=== PATIENT | male | born 1950 | race Caucasian/White ===

== ENCOUNTER 2021-06-07 11:44 | Inpatient (IN) ==
[2021-06-07] MEDS ORDERED: ONDANSETRON 4 MG/2 ML VIAL ONE (12:07)
[2021-06-07] MEDS ORDERED: ONDANSETRON 4 MG/2 ML VIAL IV STA (12:13)
[2021-06-07 12:26] LABS: ABG Base Excess 3.2 MMOL/L (-2.5-2.5); ABG HCO3 26.8 MMOL/L (20-26); ABG Oxygen Saturation 97.1 % (95-100); ABG PH 7.467 (7.35-7.45); ABG PO2 95.3 MM HG (80-95)
[2021-06-07 12:53] LABS: Basophils % 0.2 % (0.0-0.8); Hematocrit 45.3 VOL% (42.0-52.0); Hemoglobin 14.8 GM/DL (14.0-18.0); Immature Granulocytes % 1.4 %; Immature Granulocytes Absolute 0.14 #; Lymphocytes # 0.3 10*3/uL (1.4-4.0); Lymphocytes % 3.3 % (21.2-54.2); Mean Corpuscular HGB Conc 32.7 GM/DL (32-36); Mean Platelet Volume 9.6 FL (9.6-12.0); Monocytes % 5.3 % (1.7-12.7); Neutrophils % 89.8 % (38.7-73.9); Platelet Count 266 T/CUMM (130-400); Red Blood Count 4.98 MC/CUMM (3.8-5.5); Red Cell Distribution Width 14.5 % (9.3-17.3); White Blood Count 10.4 T/CUMM (4-12)
[2021-06-07] MEDS ORDERED: cefTRIAXone 1,000 MG in SODIUM CHLORIDE 0.9% 100 ML IV STA (12:56)
[2021-06-07] MEDS ORDERED: AZITHROMYCIN INJ 500 MG in SODIUM CHLORIDE 0.9% 250 ML IV STA (12:56)
[2021-06-07 13:10] LABS: Albumin 2.9 G/DL (3.4-5.0); Bilirubin,Total 1.1 MG/DL (0.20-1.00); Calcium 9.8 MG/DL (8.5-10.1); Potassium 3.7 MMOL/L (3.5-5.1); Total Protein 8.2 G/DL (6.4-8.2)
[2021-06-07 13:26] LABS: Platelet Estimate Adequate
[2021-06-07] MEDS ORDERED: LACTATED RINGERS 2,000 ML IV ONE (14:23)
[2021-06-07] MEDS ORDERED: ALBUTEROL 2.5 MG/3 ML NEB RESP TX STA (14:30)
[2021-06-07] MEDS ORDERED: DEXTROSE 10% 250 ML BAG IV PRN (15:18)
[2021-06-07] MEDS ORDERED: GLUCAGON 1 MG VIAL IM PRN (15:18)
[2021-06-07] MEDS: LACTATED RINGERS 1,000 ML IV SCH (15:53)
[2021-06-07] MEDS: DEXAMETHASONE 4 MG/1 ML VIAL IV SCH (16:06)
[2021-06-07] MEDS: AZITHROMYCIN INJ 500 MG in SODIUM CHLORIDE 0.9% 250 ML IV SCH (17:47)
[2021-06-07] MEDS: cefTRIAXone 1,000 MG in SODIUM CHLORIDE 0.9% 100 ML IV SCH (17:48)
[2021-06-07] MEDS: ZINC GLUCONATE 50 MG TABLET PO SCH (18:19)
[2021-06-07] MEDS: CETIRIZINE 10 MG TABLET PO SCH (18:19)
[2021-06-07] MEDS: CHOLECALCIFEROL 1,000 UNIT TABLET PO SCH (18:19)
[2021-06-07] MEDS: ONDANSETRON 4 MG/2 ML VIAL IV PRN (19:24)
[2021-06-07] MEDS: ALBUTEROL/IPRATROPIUM 3 ML NEB RESP TX SCH (20:39)
[2021-06-07] MEDS: ENOXAPARIN 40 MG/0.4 ML SYRINGE SUBCUT SCH (20:55)
[2021-06-07] MEDS: ASCORBIC ACID 500 MG TABLET PO SCH (20:55)
[2021-06-07] MEDS: FAMOTIDINE 20 MG TABLET PO SCH (20:55)
[2021-06-08] MEDS: LACTATED RINGERS 1,000 ML IV SCH ×3 (01:14→21:07)
[2021-06-08] MEDS: ALBUTEROL/IPRATROPIUM 3 ML NEB RESP TX SCH ×4 (01:36→19:42)
[2021-06-08] MEDS: ONDANSETRON 4 MG/2 ML VIAL IV PRN ×5 (02:42→21:10)
[2021-06-08 05:23] LABS: Basophils # 0.1 10*3/uL (0.0-0.2); Basophils % 0.7 % (0.0-0.8); Immature Granulocytes % 1.1 %; Lymphocytes # 0.2 10*3/uL (1.4-4.0); Lymphocytes % 2.5 % (21.2-54.2); Mean Corpuscular HGB Conc 31.8 GM/DL (32-36); Mean Corpuscular Volume 92.8 FL (87-102); Mean Platelet Volume 9.8 FL (9.6-12.0); Neutrophils % 91.7 % (38.7-73.9); Platelet Count 219 T/CUMM (130-400); Red Blood Count 4.74 MC/CUMM (3.8-5.5); Red Cell Distribution Width 14.3 % (9.3-17.3); White Blood Count 8.8 T/CUMM (4-12)
[2021-06-08 05:50] LABS: Band Neutrophils 2 % (0-10); Lymphocytes 1 % (20-55); Platelet Estimate Adequate; Segmented Neutrophils 90 % (50-85); Total Cells Counted 100
[2021-06-08 05:52] LABS: Albumin 2.2 G/DL (3.4-5.0); Bilirubin,Total 0.6 MG/DL (0.20-1.00); Ferritin 620.8 ng/mL (26-388); Osmolality,Calculated 293.7 MOS/KG (273-304); Potassium 3.9 MMOL/L (3.5-5.1); Total Protein 6.7 G/DL (6.4-8.2)
[2021-06-08 06:47] LABS: Sedimentation Rate-Westergren 72 MM/HR (0-20)
[2021-06-08] MEDS: ASCORBIC ACID 500 MG TABLET PO SCH ×2 (10:29→21:08)
[2021-06-08] MEDS: ENOXAPARIN 40 MG/0.4 ML SYRINGE SUBCUT SCH ×2 (10:29→21:07)
[2021-06-08] MEDS: FAMOTIDINE 20 MG TABLET PO SCH ×2 (10:29→21:07)
[2021-06-08] MEDS: CHOLECALCIFEROL 1,000 UNIT TABLET PO SCH (10:29)
[2021-06-08] MEDS: CETIRIZINE 10 MG TABLET PO SCH (10:29)
[2021-06-08] MEDS: ZINC GLUCONATE 50 MG TABLET PO SCH (10:30)
[2021-06-08] MEDS: DEXAMETHASONE 4 MG/1 ML VIAL IV SCH (10:30)
[2021-06-08] MEDS: AZITHROMYCIN INJ 500 MG in SODIUM CHLORIDE 0.9% 250 ML IV SCH (16:15)
[2021-06-08] MEDS: cefTRIAXone 1,000 MG in SODIUM CHLORIDE 0.9% 100 ML IV SCH (18:32)
[2021-06-08] MEDS: MELATONIN 3 MG TABLET PO PRN (21:07)
[2021-06-09] MEDS: LACTATED RINGERS 1,000 ML IV SCH (01:21)
[2021-06-09] MEDS: ONDANSETRON 4 MG/2 ML VIAL IV PRN ×5 (04:53→21:21)
[2021-06-09 05:06] LABS: Basophils % 0.1 % (0.0-0.8); Hematocrit 45.1 VOL% (42.0-52.0); Hemoglobin 14.2 GM/DL (14.0-18.0); Immature Granulocytes % 1.6 %; Immature Granulocytes Absolute 0.18 #; Lymphocytes # 0.3 10*3/uL (1.4-4.0); Lymphocytes % 2.8 % (21.2-54.2); Mean Corpuscular HGB Conc 31.5 GM/DL (32-36); Mean Platelet Volume 9.6 FL (9.6-12.0); Monocytes % 4.1 % (1.7-12.7); Neutrophils % 91.4 % (38.7-73.9); Platelet Count 236 T/CUMM (130-400); Red Cell Distribution Width 14.1 % (9.3-17.3)
[2021-06-09 05:29] LABS: Band Neutrophils 1 % (0-10); Hypochromia 1+; Lymphocytes 3 % (20-55); Segmented Neutrophils 91 % (50-85); Total Cells Counted 100
[2021-06-09 05:30] LABS: Microcytosis 1+; Ovalocytes Few
[2021-06-09 05:40] LABS: Albumin 2.1 G/DL (3.4-5.0); Bilirubin,Total 1.5 MG/DL (0.20-1.00); Calcium 8.8 MG/DL (8.5-10.1); Ferritin 602.5 ng/mL (26-388); Osmolality,Calculated 293.1 MOS/KG (273-304); Potassium 3.9 MMOL/L (3.5-5.1); Total Protein 6.3 G/DL (6.4-8.2)
[2021-06-09] MEDS: ENOXAPARIN 40 MG/0.4 ML SYRINGE SUBCUT SCH ×2 (09:31→21:16)
[2021-06-09] MEDS: DEXAMETHASONE 4 MG/1 ML VIAL IV SCH (09:31)
[2021-06-09] MEDS: FAMOTIDINE 20 MG TABLET PO SCH ×2 (09:32→21:16)
[2021-06-09] MEDS: ASCORBIC ACID 500 MG TABLET PO SCH ×2 (09:32→21:16)
[2021-06-09] MEDS: CHOLECALCIFEROL 1,000 UNIT TABLET PO SCH (09:32)
[2021-06-09] MEDS: AZITHROMYCIN 250 MG TABLET PO SCH (09:32)
[2021-06-09] MEDS: CETIRIZINE 10 MG TABLET PO SCH (09:32)
[2021-06-09] MEDS: ZINC GLUCONATE 50 MG TABLET PO SCH (09:32)
[2021-06-09] MEDS ORDERED: methylPREDNISolone SOD SUC 40 MG/1 ML VIAL IV SCH (10:30)
[2021-06-09] MEDS: cefTRIAXone 1,000 MG in SODIUM CHLORIDE 0.9% 100 ML IV SCH (19:04)
[2021-06-09] MEDS: methylPREDNISolone SOD SUC 40 MG/1 ML VIAL IV SCH (19:04)
[2021-06-10] MEDS ORDERED: BENZONATATE 100 MG CAPSULE PO PRN (00:42)
[2021-06-10] MEDS ORDERED: ALBUTEROL INHALER 18 GM INH SCH (01:00)
[2021-06-10] MEDS: methylPREDNISolone SOD SUC 40 MG/1 ML VIAL IV SCH ×3 (02:32→19:12)
[2021-06-10] MEDS ORDERED: FUROSEMIDE 40 MG/4 ML VIAL IV ONE (02:44)
[2021-06-10 03:00] LABS: ABG Base Excess 6.7 MMOL/L (-2.5-2.5); ABG HCO3 30.3 MMOL/L (20-26); ABG Oxygen Saturation 88.2 % (95-100); ABG PCO2 47.2 MM HG (35-48); ABG PH 7.441 (7.35-7.45); ABG PO2 57.2 MM HG (80-95); ABG TCO2 27.5 MMOL/L (23-27); Allen Test Positive
[2021-06-10] MEDS: ALBUTEROL/IPRATROPIUM 3 ML NEB RESP TX SCH ×4 (04:11→20:00)
[2021-06-10] MEDS: BENZONATATE 100 MG CAPSULE PO SCH ×4 (04:34→20:28)
[2021-06-10 07:59] LABS: Basophils % 0.1 % (0.0-0.8); Hematocrit 46.9 VOL% (42.0-52.0); Hemoglobin 15.1 GM/DL (14.0-18.0); Immature Granulocytes % 1.7 %; Immature Granulocytes Absolute 0.23 #; Lymphocytes # 0.3 10*3/uL (1.4-4.0); Lymphocytes % 2.2 % (21.2-54.2); Mean Corpuscular HGB Conc 32.2 GM/DL (32-36); Mean Corpuscular Volume 91.1 FL (87-102); Mean Platelet Volume 9.5 FL (9.6-12.0); Monocytes % 3.2 % (1.7-12.7); Neutrophils % 92.8 % (38.7-73.9); Platelet Count 260 T/CUMM (130-400); Red Blood Count 5.15 MC/CUMM (3.8-5.5); White Blood Count 13.5 T/CUMM (4-12)
[2021-06-10 08:19] LABS: Band Neutrophils 1 % (0-10); Lymphocytes 3 % (20-55); Segmented Neutrophils 92 % (50-85); Total Cells Counted 100
[2021-06-10 08:20] LABS: Albumin 2.4 G/DL (3.4-5.0); Bilirubin,Total 0.7 MG/DL (0.20-1.00); Calcium 9.2 MG/DL (8.5-10.1); Ferritin 478.8 ng/mL (26-388); Osmolality,Calculated 293.3 MOS/KG (273-304); Platelet Estimate Adequate; Potassium 3.6 MMOL/L (3.5-5.1); Total Protein 7.1 G/DL (6.4-8.2)
[2021-06-10] MEDS: ENOXAPARIN 40 MG/0.4 ML SYRINGE SUBCUT SCH ×2 (09:15→20:28)
[2021-06-10] MEDS: ASCORBIC ACID 500 MG TABLET PO SCH ×2 (09:15→20:28)
[2021-06-10] MEDS: CETIRIZINE 10 MG TABLET PO SCH (09:15)
[2021-06-10] MEDS: FAMOTIDINE 20 MG TABLET PO SCH ×2 (09:15→20:28)
[2021-06-10] MEDS: ZINC GLUCONATE 50 MG TABLET PO SCH (09:15)
[2021-06-10] MEDS: CHOLECALCIFEROL 1,000 UNIT TABLET PO SCH (09:15)
[2021-06-10] MEDS: AZITHROMYCIN 250 MG TABLET PO SCH (09:15)
[2021-06-10] MEDS: cefTRIAXone 1,000 MG in SODIUM CHLORIDE 0.9% 100 ML IV SCH (18:05)
[2021-06-10] MEDS: ONDANSETRON 4 MG/2 ML VIAL IV PRN (18:06)
[2021-06-11] MEDS: methylPREDNISolone SOD SUC 40 MG/1 ML VIAL IV SCH ×3 (02:41→18:00)
[2021-06-11 04:44] LABS: Basophils % 0.1 % (0.0-0.8); Hematocrit 45.7 VOL% (42.0-52.0); Immature Granulocytes % 1.7 %; Immature Granulocytes Absolute 0.25 #; Lymphocytes # 0.4 10*3/uL (1.4-4.0); Lymphocytes % 2.4 % (21.2-54.2); Mean Corpuscular HGB Conc 32.8 GM/DL (32-36); Mean Corpuscular Volume 90.3 FL (87-102); Mean Platelet Volume 10.2 FL (9.6-12.0); Monocytes % 3.1 % (1.7-12.7); Neutrophils % 92.7 % (38.7-73.9); Platelet Count 250 T/CUMM (130-400); Red Blood Count 5.06 MC/CUMM (3.8-5.5); Red Cell Distribution Width 14.1 % (9.3-17.3); White Blood Count 14.5 T/CUMM (4-12)
[2021-06-11 05:01] LABS: ABG Base Excess 8.8 MMOL/L (-2.5-2.5); ABG HCO3 32.3 MMOL/L (20-26); ABG PCO2 44.9 MM HG (35-48); ABG PH 7.482 (7.35-7.45); ABG PO2 66.1 MM HG (80-95); ABG TCO2 28.2 MMOL/L (23-27)
[2021-06-11 05:04] LABS: Calcium 8.8 MG/DL (8.5-10.1); Osmolality,Calculated 298.7 MOS/KG (273-304); Potassium 3.8 MMOL/L (3.5-5.1)
[2021-06-11 05:11] LABS: Lymphocytes 1 % (20-55); Platelet Estimate Adequate; Segmented Neutrophils 96 % (50-85); Total Cells Counted 100
[2021-06-11] MEDS: AZITHROMYCIN 250 MG TABLET PO SCH (08:22)
[2021-06-11] MEDS: ZINC GLUCONATE 50 MG TABLET PO SCH (08:22)
[2021-06-11] MEDS: ENOXAPARIN 40 MG/0.4 ML SYRINGE SUBCUT SCH ×2 (08:22→20:08)
[2021-06-11] MEDS: FAMOTIDINE 20 MG TABLET PO SCH ×2 (08:22→20:09)
[2021-06-11] MEDS: ASCORBIC ACID 500 MG TABLET PO SCH ×2 (08:22→20:09)
[2021-06-11] MEDS: CETIRIZINE 10 MG TABLET PO SCH (08:22)
[2021-06-11] MEDS: BENZONATATE 100 MG CAPSULE PO SCH ×3 (08:22→20:09)
[2021-06-11] MEDS: CHOLECALCIFEROL 1,000 UNIT TABLET PO SCH (08:22)
[2021-06-11] MEDS: ONDANSETRON 4 MG/2 ML VIAL IV PRN ×2 (09:38→13:58)
[2021-06-11] MEDS: LORazepam 2 MG/1 ML VIAL IV PRN (10:28)
[2021-06-11] MEDS: ASPIRIN EC 81 MG TABLET PO SCH (14:06)
[2021-06-11] MEDS: TAMSULOSIN 0.4 MG CAPSULE PO SCH (14:07)
[2021-06-11] MEDS: FLUTICASONE 50 MCG NASAL SPRAY 16 GM BOTTLE BOTH NARES SCH (14:34)
[2021-06-11] MEDS: ALBUTEROL/IPRATROPIUM 3 ML NEB RESP TX SCH ×3 (14:45→23:41)
[2021-06-11] MEDS: cefTRIAXone 1,000 MG in SODIUM CHLORIDE 0.9% 100 ML IV SCH (18:02)
[2021-06-11] MEDS: ATORVASTATIN 40 MG TABLET PO SCH (20:09)
[2021-06-12 02:48] LABS: ABG Base Excess 9.6 MMOL/L (-2.5-2.5); ABG HCO3 33.1 MMOL/L (20-26); ABG Oxygen Saturation 90.8 % (95-100); ABG PCO2 49.5 MM HG (35-48); ABG PH 7.461 (7.35-7.45); ABG PO2 64.2 MM HG (80-95); ABG TCO2 29.9 MMOL/L (23-27)
[2021-06-12] MEDS: methylPREDNISolone SOD SUC 40 MG/1 ML VIAL IV SCH ×3 (02:51→17:46)
[2021-06-12] MEDS: LORazepam 2 MG/1 ML VIAL IV PRN ×3 (03:46→20:35)
[2021-06-12 04:03] LABS: Basophils % 0.1 % (0.0-0.8); Hematocrit 47.3 VOL% (42.0-52.0); Immature Granulocytes % 1.5 %; Immature Granulocytes Absolute 0.21 #; Lymphocytes # 0.3 10*3/uL (1.4-4.0); Lymphocytes % 2.3 % (21.2-54.2); Mean Corpuscular HGB Conc 31.7 GM/DL (32-36); Mean Corpuscular Volume 91.8 FL (87-102); Mean Platelet Volume 10.3 FL (9.6-12.0); Monocytes % 2.6 % (1.7-12.7); Neutrophils % 93.5 % (38.7-73.9); Platelet Count 240 T/CUMM (130-400); Red Blood Count 5.15 MC/CUMM (3.8-5.5); White Blood Count 13.7 T/CUMM (4-12)
[2021-06-12 04:26] LABS: Lymphocytes 1 % (20-55); Platelet Estimate Adequate; Segmented Neutrophils 97 % (50-85); Total Cells Counted 100
[2021-06-12 04:28] LABS: Albumin 2.1 G/DL (3.4-5.0); Bilirubin,Total 0.4 MG/DL (0.20-1.00); Calcium 9.1 MG/DL (8.5-10.1); Ferritin 341.4 ng/mL (26-388); Osmolality,Calculated 299.8 MOS/KG (273-304); Potassium 4.4 MMOL/L (3.5-5.1); Total Protein 6.2 G/DL (6.4-8.2)
[2021-06-12] MEDS: LEVOTHYROXINE 150 MCG TABLET PO SCH (06:16)
[2021-06-12] MEDS: ALBUTEROL/IPRATROPIUM 3 ML NEB RESP TX SCH ×3 (07:00→16:10)
[2021-06-12] MEDS: ASCORBIC ACID 500 MG TABLET PO SCH ×2 (08:45→20:57)
[2021-06-12] MEDS: hydroCHLOROthiazide 12.5 MG CAPSULE PO SCH (08:45)
[2021-06-12] MEDS: FAMOTIDINE 20 MG TABLET PO SCH ×2 (08:46→20:56)
[2021-06-12] MEDS: OXYBUTYNIN XL 10 MG TABLET PO SCH (08:46)
[2021-06-12] MEDS: ZINC GLUCONATE 50 MG TABLET PO SCH (08:46)
[2021-06-12] MEDS: ASPIRIN EC 81 MG TABLET PO SCH (08:46)
[2021-06-12] MEDS: TAMSULOSIN 0.4 MG CAPSULE PO SCH (08:46)
[2021-06-12] MEDS: CETIRIZINE 10 MG TABLET PO SCH (08:46)
[2021-06-12] MEDS: CHOLECALCIFEROL 1,000 UNIT TABLET PO SCH (08:46)
[2021-06-12] MEDS: ENOXAPARIN 40 MG/0.4 ML SYRINGE SUBCUT SCH ×2 (08:47→20:56)
[2021-06-12] MEDS: FLUTICASONE 50 MCG NASAL SPRAY 16 GM BOTTLE BOTH NARES SCH (08:48)
[2021-06-12] MEDS: BENZONATATE 100 MG CAPSULE PO SCH ×3 (08:54→20:56)
[2021-06-12] MEDS: LOSARTAN 50 MG TABLET PO SCH (10:33)
[2021-06-12] MEDS: cefTRIAXone 1,000 MG in SODIUM CHLORIDE 0.9% 100 ML IV SCH (16:00)
[2021-06-12] MEDS: ONDANSETRON 4 MG/2 ML VIAL IV PRN (17:32)
[2021-06-12] MEDS: ATORVASTATIN 40 MG TABLET PO SCH (20:56)
[2021-06-13] MEDS: ALBUTEROL/IPRATROPIUM 3 ML NEB RESP TX SCH ×6 (00:17→20:43)
[2021-06-13] MEDS: methylPREDNISolone SOD SUC 40 MG/1 ML VIAL IV SCH ×3 (01:17→18:08)
[2021-06-13 05:12] LABS: Basophils % 0.1 % (0.0-0.8); Hematocrit 48.6 VOL% (42.0-52.0); Hemoglobin 15.5 GM/DL (14.0-18.0); Immature Granulocytes % 1.2 %; Immature Granulocytes Absolute 0.22 #; Lymphocytes # 0.3 10*3/uL (1.4-4.0); Lymphocytes % 1.8 % (21.2-54.2); Mean Corpuscular HGB Conc 31.9 GM/DL (32-36); Mean Platelet Volume 9.3 FL (9.6-12.0); Monocytes % 1.5 % (1.7-12.7); Neutrophils % 95.4 % (38.7-73.9); Platelet Count 270 T/CUMM (130-400); Red Blood Count 5.34 MC/CUMM (3.8-5.5); White Blood Count 17.7 T/CUMM (4-12)
[2021-06-13 05:35] LABS: Lymphocytes 2 % (20-55); Platelet Estimate Normal; Segmented Neutrophils 96 % (50-85); Total Cells Counted 100
[2021-06-13 05:41] LABS: Albumin 2.1 G/DL (3.4-5.0); Bilirubin,Total 0.8 MG/DL (0.20-1.00); Calcium 8.9 MG/DL (8.5-10.1); Osmolality,Calculated 301.8 MOS/KG (273-304); Potassium 4.3 MMOL/L (3.5-5.1); Total Protein 6.3 G/DL (6.4-8.2)
[2021-06-13] MEDS: LEVOTHYROXINE 150 MCG TABLET PO SCH (06:22)
[2021-06-13] MEDS: ONDANSETRON 4 MG/2 ML VIAL IV PRN (06:52)
[2021-06-13] MEDS: OXYBUTYNIN XL 10 MG TABLET PO SCH (09:19)
[2021-06-13] MEDS: ZINC GLUCONATE 50 MG TABLET PO SCH (09:19)
[2021-06-13] MEDS: ENOXAPARIN 40 MG/0.4 ML SYRINGE SUBCUT SCH ×2 (09:19→21:16)
[2021-06-13] MEDS: CHOLECALCIFEROL 1,000 UNIT TABLET PO SCH (09:19)
[2021-06-13] MEDS: TAMSULOSIN 0.4 MG CAPSULE PO SCH (09:19)
[2021-06-13] MEDS: BENZONATATE 100 MG CAPSULE PO SCH ×3 (09:19→21:16)
[2021-06-13] MEDS: CETIRIZINE 10 MG TABLET PO SCH (09:20)
[2021-06-13] MEDS: FAMOTIDINE 20 MG TABLET PO SCH ×2 (09:20→21:16)
[2021-06-13] MEDS: hydroCHLOROthiazide 12.5 MG CAPSULE PO SCH (09:20)
[2021-06-13] MEDS: ASPIRIN EC 81 MG TABLET PO SCH (09:20)
[2021-06-13] MEDS: LOSARTAN 50 MG TABLET PO SCH (09:20)
[2021-06-13] MEDS: ASCORBIC ACID 500 MG TABLET PO SCH ×2 (09:20→21:16)
[2021-06-13] MEDS: FLUTICASONE 50 MCG NASAL SPRAY 16 GM BOTTLE BOTH NARES SCH (09:23)
[2021-06-13] MEDS: PROMETHAZINE INJ 25 MG in SODIUM CHLORIDE 0.9% 50 ML IV PRN (09:49)
[2021-06-13] MEDS: cefTRIAXone 1,000 MG in SODIUM CHLORIDE 0.9% 100 ML IV SCH (18:10)
[2021-06-13] MEDS: MELATONIN 3 MG TABLET PO PRN (21:16)
[2021-06-13] MEDS: ATORVASTATIN 40 MG TABLET PO SCH (21:17)
[2021-06-13] MEDS ORDERED: LORazepam 2 MG/1 ML VIAL ONE (21:30)
[2021-06-13] MEDS: LORazepam 2 MG/1 ML VIAL IV PRN (21:32)
[2021-06-14] MEDS: ALBUTEROL/IPRATROPIUM 3 ML NEB RESP TX SCH ×4 (04:39→19:50)
[2021-06-14] MEDS: methylPREDNISolone SOD SUC 40 MG/1 ML VIAL IV SCH ×3 (04:54→18:07)
[2021-06-14] MEDS: PROMETHAZINE INJ 25 MG in SODIUM CHLORIDE 0.9% 50 ML IV PRN (05:22)
[2021-06-14] MEDS: LEVOTHYROXINE 150 MCG TABLET PO SCH (05:38)
[2021-06-14 06:31] LABS: Basophils % 0.1 % (0.0-0.8); Hematocrit 47.4 VOL% (42.0-52.0); Hemoglobin 15.4 GM/DL (14.0-18.0); Immature Granulocytes % 1.1 %; Immature Granulocytes Absolute 0.22 #; Lymphocytes # 0.2 10*3/uL (1.4-4.0); Lymphocytes % 1.2 % (21.2-54.2); Mean Corpuscular HGB Conc 32.5 GM/DL (32-36); Mean Corpuscular Volume 89.1 FL (87-102); Mean Platelet Volume 9.7 FL (9.6-12.0); Neutrophils % 95.6 % (38.7-73.9); Platelet Count 262 T/CUMM (130-400); Red Blood Count 5.32 MC/CUMM (3.8-5.5); White Blood Count 19.8 T/CUMM (4-12)
[2021-06-14 06:52] LABS: Albumin 2.1 G/DL (3.4-5.0); Bilirubin,Total 0.6 MG/DL (0.20-1.00); Calcium 8.6 MG/DL (8.5-10.1); Osmolality,Calculated 292.3 MOS/KG (273-304); Potassium 4.1 MMOL/L (3.5-5.1); Total Protein 5.8 G/DL (6.4-8.2)
[2021-06-14 07:34] LABS: Band Neutrophils 2 % (0-10); Lymphocytes 4 % (20-55); Metamyelocytes 1 %; Nucleated Red Blood Cells 2 (0-5); Segmented Neutrophils 89 % (50-85); Total Cells Counted 100
[2021-06-14 07:35] LABS: Platelet Estimate Normal
[2021-06-14] MEDS: ENOXAPARIN 40 MG/0.4 ML SYRINGE SUBCUT SCH ×2 (08:21→20:21)
[2021-06-14] MEDS: ASCORBIC ACID 500 MG TABLET PO SCH ×2 (08:21→20:21)
[2021-06-14] MEDS: CHOLECALCIFEROL 1,000 UNIT TABLET PO SCH (08:22)
[2021-06-14] MEDS: CETIRIZINE 10 MG TABLET PO SCH (08:22)
[2021-06-14] MEDS: hydroCHLOROthiazide 12.5 MG CAPSULE PO SCH (08:22)
[2021-06-14] MEDS: FAMOTIDINE 20 MG TABLET PO SCH ×2 (08:22→20:21)
[2021-06-14] MEDS: ASPIRIN EC 81 MG TABLET PO SCH (08:22)
[2021-06-14] MEDS: ZINC GLUCONATE 50 MG TABLET PO SCH (08:22)
[2021-06-14] MEDS: TAMSULOSIN 0.4 MG CAPSULE PO SCH (08:22)
[2021-06-14] MEDS: OXYBUTYNIN XL 10 MG TABLET PO SCH (08:22)
[2021-06-14] MEDS: BENZONATATE 100 MG CAPSULE PO SCH ×3 (08:23→20:21)
[2021-06-14] MEDS: LOSARTAN 50 MG TABLET PO SCH (08:23)
[2021-06-14] MEDS: FLUTICASONE 50 MCG NASAL SPRAY 16 GM BOTTLE BOTH NARES SCH (09:10)
[2021-06-14] MEDS: ONDANSETRON 4 MG/2 ML VIAL IV PRN (13:32)
[2021-06-14] MEDS: cefTRIAXone 1,000 MG in SODIUM CHLORIDE 0.9% 100 ML IV SCH (17:18)
[2021-06-14] MEDS: ATORVASTATIN 40 MG TABLET PO SCH (20:21)
[2021-06-14] MEDS: MELATONIN 3 MG TABLET PO PRN (20:21)
[2021-06-14] MEDS: PANTOPRAZOLE 40 MG VIAL IV SCH (20:21)
[2021-06-15] MEDS: ALBUTEROL/IPRATROPIUM 3 ML NEB RESP TX SCH ×4 (00:30→18:25)
[2021-06-15] MEDS: methylPREDNISolone SOD SUC 40 MG/1 ML VIAL IV SCH ×3 (01:21→17:42)
[2021-06-15 03:36] LABS: ABG HCO3 31.3 MMOL/L (20-26); ABG Oxygen Saturation 93.5 % (95-100); ABG PCO2 42.9 MM HG (35-48); ABG PH 7.481 (7.35-7.45); ABG PO2 67.7 MM HG (80-95); ABG TCO2 32.6 MMOL/L (23-27)
[2021-06-15] MEDS: LEVOTHYROXINE 150 MCG TABLET PO SCH (05:55)
[2021-06-15 07:15] LABS: Basophils % 0.1 % (0.0-0.8); Hematocrit 49.5 VOL% (42.0-52.0); Hemoglobin 16.1 GM/DL (14.0-18.0); Immature Granulocytes % 1.7 %; Immature Granulocytes Absolute 0.31 #; Lymphocytes # 0.3 10*3/uL (1.4-4.0); Lymphocytes % 1.6 % (21.2-54.2); Mean Corpuscular HGB Conc 32.5 GM/DL (32-36); Mean Corpuscular Volume 91.2 FL (87-102); Mean Platelet Volume 10.7 FL (9.6-12.0); Monocytes % 2.6 % (1.7-12.7); Platelet Count 199 T/CUMM (130-400); Red Blood Count 5.43 MC/CUMM (3.8-5.5); Red Cell Distribution Width 13.9 % (9.3-17.3); White Blood Count 17.7 T/CUMM (4-12)
[2021-06-15 07:20] LABS: Lymphocytes 2 % (20-55); Microcytosis 1+; Ovalocytes Few; Segmented Neutrophils 97 % (50-85); Total Cells Counted 100
[2021-06-15 07:21] LABS: Platelet Estimate Adequate
[2021-06-15 08:02] LABS: Blood Urea Nitrogen 38 MG/DL (7-18); Calcium 8.2 MG/DL (8.5-10.1); Carbon Dioxide 34 MMOL/L (21-32); Estimated Glom Filtration Rate 76 ML/MIN; Ferritin 220.9 ng/mL (26-388); Glucose 154 MG/DL (74-106); Osmolality,Calculated 292.3 MOS/KG (273-304); Potassium 4.2 MMOL/L (3.5-5.1); Sodium 141 MMOL/L (136-145)
[2021-06-15] MEDS: CETIRIZINE 10 MG TABLET PO SCH (08:25)
[2021-06-15] MEDS: OXYBUTYNIN XL 10 MG TABLET PO SCH (08:25)
[2021-06-15] MEDS: TAMSULOSIN 0.4 MG CAPSULE PO SCH (08:25)
[2021-06-15] MEDS: LOSARTAN 50 MG TABLET PO SCH (08:25)
[2021-06-15] MEDS: CHOLECALCIFEROL 1,000 UNIT TABLET PO SCH (08:25)
[2021-06-15] MEDS: hydroCHLOROthiazide 12.5 MG CAPSULE PO SCH (08:25)
[2021-06-15] MEDS: ZINC GLUCONATE 50 MG TABLET PO SCH (08:26)
[2021-06-15] MEDS: ASPIRIN EC 81 MG TABLET PO SCH (08:26)
[2021-06-15] MEDS: ASCORBIC ACID 500 MG TABLET PO SCH ×2 (08:26→20:54)
[2021-06-15] MEDS: PANTOPRAZOLE 40 MG VIAL IV SCH ×2 (08:26→20:55)
[2021-06-15] MEDS: FAMOTIDINE 20 MG TABLET PO SCH ×2 (08:26→20:55)
[2021-06-15] MEDS: BENZONATATE 100 MG CAPSULE PO SCH ×3 (08:26→20:55)
[2021-06-15] MEDS: ENOXAPARIN 40 MG/0.4 ML SYRINGE SUBCUT SCH ×2 (08:27→20:54)
[2021-06-15] MEDS: FLUTICASONE 50 MCG NASAL SPRAY 16 GM BOTTLE BOTH NARES SCH (09:27)
[2021-06-15] MEDS: PROMETHAZINE INJ 25 MG in SODIUM CHLORIDE 0.9% 50 ML IV PRN ×2 (09:48→21:05)
[2021-06-15] MEDS: ONDANSETRON 4 MG/2 ML VIAL IV PRN ×2 (13:01→17:42)
[2021-06-15] MEDS: MELATONIN 3 MG TABLET PO PRN (20:54)
[2021-06-15] MEDS: ATORVASTATIN 40 MG TABLET PO SCH (20:55)
[2021-06-16] MEDS: ALBUTEROL/IPRATROPIUM 3 ML NEB RESP TX SCH ×3 (00:42→14:26)
[2021-06-16] MEDS: methylPREDNISolone SOD SUC 40 MG/1 ML VIAL IV SCH ×2 (03:01→09:42)
[2021-06-16 04:12] LABS: Basophils % 0.1 % (0.0-0.8); Hematocrit 46.8 VOL% (42.0-52.0); Hemoglobin 15.3 GM/DL (14.0-18.0); Immature Granulocytes % 1.2 %; Immature Granulocytes Absolute 0.22 #; Lymphocytes # 0.2 10*3/uL (1.4-4.0); Lymphocytes % 0.9 % (21.2-54.2); Mean Corpuscular HGB Conc 32.7 GM/DL (32-36); Mean Corpuscular Volume 90.5 FL (87-102); Mean Platelet Volume 9.8 FL (9.6-12.0); Monocytes % 2.5 % (1.7-12.7); Neutrophils % 95.3 % (38.7-73.9); Platelet Count 197 T/CUMM (130-400); Red Blood Count 5.17 MC/CUMM (3.8-5.5); Red Cell Distribution Width 13.8 % (9.3-17.3); White Blood Count 18.5 T/CUMM (4-12)
[2021-06-16 04:29] LABS: Calcium 8.3 MG/DL (8.5-10.1); Osmolality,Calculated 294.3 MOS/KG (273-304); Potassium 4.4 MMOL/L (3.5-5.1)
[2021-06-16] MEDS: LEVOTHYROXINE 150 MCG TABLET PO SCH (06:28)
[2021-06-16] MEDS: LOSARTAN 50 MG TABLET PO SCH (09:41)
[2021-06-16] MEDS: ASPIRIN EC 81 MG TABLET PO SCH (09:41)
[2021-06-16] MEDS: FAMOTIDINE 20 MG TABLET PO SCH ×2 (09:41→21:02)
[2021-06-16] MEDS: TAMSULOSIN 0.4 MG CAPSULE PO SCH (09:41)
[2021-06-16] MEDS: FLUTICASONE 50 MCG NASAL SPRAY 16 GM BOTTLE BOTH NARES SCH (09:41)
[2021-06-16] MEDS: OXYBUTYNIN XL 10 MG TABLET PO SCH (09:41)
[2021-06-16] MEDS: ASCORBIC ACID 500 MG TABLET PO SCH ×2 (09:42→21:02)
[2021-06-16] MEDS: CHOLECALCIFEROL 1,000 UNIT TABLET PO SCH (09:42)
[2021-06-16] MEDS: ZINC GLUCONATE 50 MG TABLET PO SCH (09:42)
[2021-06-16] MEDS: PANTOPRAZOLE 40 MG VIAL IV SCH (09:45)
[2021-06-16] MEDS: ONDANSETRON 4 MG/2 ML VIAL IV PRN (09:59)
[2021-06-16] MEDS: BENZONATATE 100 MG CAPSULE PO SCH ×3 (10:00→22:16)
[2021-06-16] MEDS: ENOXAPARIN 40 MG/0.4 ML SYRINGE SUBCUT SCH ×2 (10:00→21:02)
[2021-06-16] MEDS: hydroCHLOROthiazide 12.5 MG CAPSULE PO SCH (10:00)
[2021-06-16] MEDS: CETIRIZINE 10 MG TABLET PO SCH (10:00)
[2021-06-16] MEDS: PROMETHAZINE 25 MG TABLET PO PRN ×2 (11:22→21:03)
[2021-06-16] MEDS: CALCIUM CARBONATE CHEW 500 MG TABLET PO PRN ×2 (17:00→21:03)
[2021-06-16] MEDS: ATORVASTATIN 40 MG TABLET PO SCH (21:02)
[2021-06-16] MEDS: MELATONIN 3 MG TABLET PO PRN (21:03)
[2021-06-16] MEDS: methylPREDNISolone SOD SUC 125 MG/2 ML VIAL IV SCH (21:05)
[2021-06-17] MEDS: ALBUTEROL/IPRATROPIUM 3 ML NEB RESP TX SCH ×5 (00:53→20:00)
[2021-06-17] MEDS: LEVOTHYROXINE 150 MCG TABLET PO SCH (05:49)
[2021-06-17] MEDS: PROMETHAZINE 25 MG TABLET PO PRN (05:49)
[2021-06-17 07:11] LABS: Basophils % 0.1 % (0.0-0.8); Hematocrit 47.5 VOL% (42.0-52.0); Hemoglobin 15.6 GM/DL (14.0-18.0); Immature Granulocytes Absolute 0.18 #; Lymphocytes # 0.2 10*3/uL (1.4-4.0); Mean Corpuscular HGB Conc 32.8 GM/DL (32-36); Mean Corpuscular Volume 89.5 FL (87-102); Mean Platelet Volume 10.4 FL (9.6-12.0); Monocytes % 2.5 % (1.7-12.7); Neutrophils % 95.4 % (38.7-73.9); Platelet Count 176 T/CUMM (130-400); Red Blood Count 5.31 MC/CUMM (3.8-5.5); White Blood Count 18.2 T/CUMM (4-12)
[2021-06-17 07:30] LABS: Calcium 8.8 MG/DL (8.5-10.1); Osmolality,Calculated 286.8 MOS/KG (273-304); Potassium 4.4 MMOL/L (3.5-5.1)
[2021-06-17 07:31] LABS: Lymphocytes 2 % (20-55); Microcytosis Slight; Platelet Estimate Adequate; Segmented Neutrophils 97 % (50-85); Total Cells Counted 100
[2021-06-17] MEDS: ZINC GLUCONATE 50 MG TABLET PO SCH (09:08)
[2021-06-17] MEDS: CHOLECALCIFEROL 1,000 UNIT TABLET PO SCH (09:08)
[2021-06-17] MEDS: CETIRIZINE 10 MG TABLET PO SCH (09:08)
[2021-06-17] MEDS: ASCORBIC ACID 500 MG TABLET PO SCH ×2 (09:08→20:12)
[2021-06-17] MEDS: ENOXAPARIN 40 MG/0.4 ML SYRINGE SUBCUT SCH ×2 (09:08→20:11)
[2021-06-17] MEDS: hydroCHLOROthiazide 12.5 MG CAPSULE PO SCH (09:08)
[2021-06-17] MEDS: BENZONATATE 100 MG CAPSULE PO SCH ×3 (09:08→20:12)
[2021-06-17] MEDS: TAMSULOSIN 0.4 MG CAPSULE PO SCH (09:09)
[2021-06-17] MEDS: LOSARTAN 50 MG TABLET PO SCH (09:09)
[2021-06-17] MEDS: OXYBUTYNIN XL 10 MG TABLET PO SCH (09:09)
[2021-06-17] MEDS: FAMOTIDINE 20 MG TABLET PO SCH ×2 (09:09→20:12)
[2021-06-17] MEDS: FLUTICASONE 50 MCG NASAL SPRAY 16 GM BOTTLE BOTH NARES SCH (09:09)
[2021-06-17] MEDS: ASPIRIN EC 81 MG TABLET PO SCH (09:09)
[2021-06-17] MEDS: methylPREDNISolone SOD SUC 125 MG/2 ML VIAL IV SCH ×2 (10:57→21:04)
[2021-06-17] MEDS: MELATONIN 3 MG TABLET PO PRN (20:12)
[2021-06-17] MEDS: ATORVASTATIN 40 MG TABLET PO SCH (20:12)
[2021-06-18] MEDS: ALBUTEROL/IPRATROPIUM 3 ML NEB RESP TX SCH ×4 (00:25→19:45)
[2021-06-18] MEDS: LEVOTHYROXINE 150 MCG TABLET PO SCH (05:48)
[2021-06-18 06:33] LABS: Basophils % 0.1 % (0.0-0.8); Hematocrit 48.4 VOL% (42.0-52.0); Hemoglobin 15.6 GM/DL (14.0-18.0); Immature Granulocytes % 0.9 %; Immature Granulocytes Absolute 0.16 #; Lymphocytes # 0.2 10*3/uL (1.4-4.0); Lymphocytes % 0.9 % (21.2-54.2); Mean Corpuscular HGB Conc 32.2 GM/DL (32-36); Mean Platelet Volume 10.4 FL (9.6-12.0); Monocytes % 2.5 % (1.7-12.7); Neutrophils % 95.6 % (38.7-73.9); Platelet Count 159 T/CUMM (130-400); Red Blood Count 5.32 MC/CUMM (3.8-5.5)
[2021-06-18 06:57] LABS: Albumin 1.8 G/DL (3.4-5.0); Bilirubin,Total 0.7 MG/DL (0.20-1.00); Calcium 8.6 MG/DL (8.5-10.1); Total Protein 5.4 G/DL (6.4-8.2)
[2021-06-18 07:46] LABS: Band Neutrophils 6 % (0-10); Lymphocytes 1 % (20-55); Macrocytosis Slight; Platelet Estimate Normal; Segmented Neutrophils 91 % (50-85); Total Cells Counted 100
[2021-06-18] MEDS: PROMETHAZINE 25 MG TABLET PO PRN ×2 (08:41→17:54)
[2021-06-18] MEDS: ENOXAPARIN 40 MG/0.4 ML SYRINGE SUBCUT SCH ×2 (08:42→20:03)
[2021-06-18] MEDS: FAMOTIDINE 20 MG TABLET PO SCH ×2 (09:21→20:05)
[2021-06-18] MEDS: hydroCHLOROthiazide 12.5 MG CAPSULE PO SCH (09:21)
[2021-06-18] MEDS: CETIRIZINE 10 MG TABLET PO SCH (09:22)
[2021-06-18] MEDS: OXYBUTYNIN XL 10 MG TABLET PO SCH (09:22)
[2021-06-18] MEDS: LOSARTAN 50 MG TABLET PO SCH (09:22)
[2021-06-18] MEDS: TAMSULOSIN 0.4 MG CAPSULE PO SCH (09:22)
[2021-06-18] MEDS: ASCORBIC ACID 500 MG TABLET PO SCH (09:22)
[2021-06-18] MEDS: ASPIRIN EC 81 MG TABLET PO SCH (09:22)
[2021-06-18] MEDS: FLUTICASONE 50 MCG NASAL SPRAY 16 GM BOTTLE BOTH NARES SCH (09:23)
[2021-06-18] MEDS: ZINC GLUCONATE 50 MG TABLET PO SCH (09:23)
[2021-06-18] MEDS: CHOLECALCIFEROL 1,000 UNIT TABLET PO SCH (09:23)
[2021-06-18] MEDS: BENZONATATE 100 MG CAPSULE PO SCH ×3 (09:23→20:04)
[2021-06-18] MEDS: methylPREDNISolone SOD SUC 125 MG/2 ML VIAL IV SCH ×2 (09:49→21:06)
[2021-06-18] MEDS ORDERED: DEXTROSE 50% 25 GM/50 ML VIAL IV PRN (10:02)
[2021-06-18] MEDS: INSULIN REGULAR 100 UNIT/ML SUBCUT SCH ×3 (12:46→20:04)
[2021-06-18] MEDS: ALBUTEROL INHALER 18 GM INH PRN (19:27)
[2021-06-18] MEDS: MELATONIN 3 MG TABLET PO PRN (20:04)
[2021-06-18] MEDS: ATORVASTATIN 40 MG TABLET PO SCH (20:05)
[2021-06-19] MEDS: ALBUTEROL/IPRATROPIUM 3 ML NEB RESP TX SCH ×4 (02:00→18:23)
[2021-06-19] MEDS: ALBUTEROL INHALER 18 GM INH PRN (02:30)
[2021-06-19] MEDS: LORazepam 2 MG/1 ML VIAL IV PRN (05:43)
[2021-06-19] MEDS: LEVOTHYROXINE 150 MCG TABLET PO SCH (05:43)
[2021-06-19] MEDS: INSULIN REGULAR 100 UNIT/ML SUBCUT SCH ×4 (07:33→21:11)
[2021-06-19] MEDS: FAMOTIDINE 20 MG TABLET PO SCH ×2 (09:16→21:10)
[2021-06-19] MEDS: LOSARTAN 50 MG TABLET PO SCH (09:16)
[2021-06-19] MEDS: ENOXAPARIN 40 MG/0.4 ML SYRINGE SUBCUT SCH ×2 (09:16→21:10)
[2021-06-19] MEDS: ASPIRIN EC 81 MG TABLET PO SCH (09:16)
[2021-06-19] MEDS: OXYBUTYNIN XL 10 MG TABLET PO SCH (09:16)
[2021-06-19] MEDS: TAMSULOSIN 0.4 MG CAPSULE PO SCH (09:16)
[2021-06-19] MEDS: hydroCHLOROthiazide 12.5 MG CAPSULE PO SCH (09:16)
[2021-06-19] MEDS: BENZONATATE 100 MG CAPSULE PO SCH ×3 (09:16→21:10)
[2021-06-19] MEDS: FLUTICASONE 50 MCG NASAL SPRAY 16 GM BOTTLE BOTH NARES SCH (09:17)
[2021-06-19] MEDS: methylPREDNISolone SOD SUC 125 MG/2 ML VIAL IV SCH (10:23)
[2021-06-19] MEDS: methylPREDNISolone SOD SUC 40 MG/1 ML VIAL IV SCH ×2 (11:27→23:10)
[2021-06-19] MEDS: MELATONIN 3 MG TABLET PO PRN (21:10)
[2021-06-19] MEDS: ATORVASTATIN 40 MG TABLET PO SCH (21:10)
[2021-06-20] MEDS: ALBUTEROL/IPRATROPIUM 3 ML NEB RESP TX SCH ×4 (00:31→18:24)
[2021-06-20] MEDS: LORazepam 2 MG/1 ML VIAL IV PRN ×3 (03:00→17:55)
[2021-06-20] MEDS: LEVOTHYROXINE 150 MCG TABLET PO SCH (06:10)
[2021-06-20 06:12] LABS: Basophils % 0.1 % (0.0-0.8); Hematocrit 52.4 VOL% (42.0-52.0); Immature Granulocytes % 1.1 %; Immature Granulocytes Absolute 0.18 #; Lymphocytes # 0.2 10*3/uL (1.4-4.0); Lymphocytes % 0.9 % (21.2-54.2); Mean Corpuscular HGB Conc 32.4 GM/DL (32-36); Mean Corpuscular Volume 90.2 FL (87-102); Mean Platelet Volume 10.6 FL (9.6-12.0); Monocytes % 3.2 % (1.7-12.7); Neutrophils % 94.7 % (38.7-73.9); Platelet Count 142 T/CUMM (130-400); Red Blood Count 5.81 MC/CUMM (3.8-5.5); Red Cell Distribution Width 14.5 % (9.3-17.3); White Blood Count 16.4 T/CUMM (4-12)
[2021-06-20 06:28] LABS: Calcium 8.4 MG/DL (8.5-10.1); Osmolality,Calculated 271.8 MOS/KG (273-304); Potassium 4.7 MMOL/L (3.5-5.1)
[2021-06-20 06:39] LABS: Band Neutrophils 1 % (0-10); Lymphocytes 1 % (20-55); Platelet Estimate Normal; Segmented Neutrophils 96 % (50-85); Total Cells Counted 100
[2021-06-20 07:15] LABS: Calcium 6.8 MG/DL (8.5-10.1); Osmolality,Calculated 277.1 MOS/KG (273-304); Potassium 4.7 MMOL/L (3.5-5.1)
[2021-06-20] MEDS: FAMOTIDINE 20 MG TABLET PO SCH ×2 (09:29→20:49)
[2021-06-20] MEDS: ENOXAPARIN 40 MG/0.4 ML SYRINGE SUBCUT SCH ×2 (09:29→20:51)
[2021-06-20] MEDS: BENZONATATE 100 MG CAPSULE PO SCH ×3 (09:29→20:50)
[2021-06-20] MEDS: TAMSULOSIN 0.4 MG CAPSULE PO SCH (09:29)
[2021-06-20] MEDS: LOSARTAN 50 MG TABLET PO SCH (09:29)
[2021-06-20] MEDS: hydroCHLOROthiazide 12.5 MG CAPSULE PO SCH (09:29)
[2021-06-20] MEDS: INSULIN REGULAR 100 UNIT/ML SUBCUT SCH ×4 (09:30→21:29)
[2021-06-20] MEDS: ASPIRIN EC 81 MG TABLET PO SCH (09:30)
[2021-06-20] MEDS: OXYBUTYNIN XL 10 MG TABLET PO SCH (09:30)
[2021-06-20] MEDS: FLUTICASONE 50 MCG NASAL SPRAY 16 GM BOTTLE BOTH NARES SCH (09:30)
[2021-06-20 10:22] LABS: ABG Base Excess 4.8 MMOL/L (-2.5-2.5); ABG HCO3 28.5 MMOL/L (20-26); ABG Oxygen Saturation 93.7 % (95-100); ABG PCO2 42.3 MM HG (35-48); ABG TCO2 23.9 MMOL/L (23-27); Allen Test Positive; Pt O2 Delivery Device BIPAP
[2021-06-20] MEDS: methylPREDNISolone SOD SUC 40 MG/1 ML VIAL IV SCH ×2 (11:20→23:42)
[2021-06-20] MEDS: ATORVASTATIN 40 MG TABLET PO SCH (20:50)
[2021-06-20 23:21] VITALS: BP 96/60
[2021-06-21] MEDS: ALBUTEROL/IPRATROPIUM 3 ML NEB RESP TX SCH ×4 (01:47→18:18)
[2021-06-21] MEDS: LORazepam 2 MG/1 ML VIAL IV PRN ×3 (02:53→22:13)
[2021-06-21] MEDS: LEVOTHYROXINE 150 MCG TABLET PO SCH (05:57)
[2021-06-21 06:06] LABS: Basophils % 0.1 % (0.0-0.8); Hematocrit 54.3 VOL% (42.0-52.0); Hemoglobin 17.7 GM/DL (14.0-18.0); Immature Granulocytes % 0.7 %; Immature Granulocytes Absolute 0.13 #; Lymphocytes # 0.1 10*3/uL (1.4-4.0); Lymphocytes % 0.7 % (21.2-54.2); Mean Corpuscular HGB Conc 32.6 GM/DL (32-36); Mean Corpuscular Volume 90.7 FL (87-102); Mean Platelet Volume 10.8 FL (9.6-12.0); Neutrophils % 96.5 % (38.7-73.9); Platelet Count 142 T/CUMM (130-400); Red Blood Count 5.99 MC/CUMM (3.8-5.5); White Blood Count 17.7 T/CUMM (4-12)
[2021-06-21 06:22] LABS: Osmolality,Calculated 283.1 MOS/KG (273-304); Potassium 4.4 MMOL/L (3.5-5.1)
[2021-06-21 06:34] LABS: Platelet Estimate Adequate; Segmented Neutrophils 98 % (50-85); Total Cells Counted 100
[2021-06-21] MEDS: FLUTICASONE 50 MCG NASAL SPRAY 16 GM BOTTLE BOTH NARES SCH (08:50)
[2021-06-21] MEDS: BENZONATATE 100 MG CAPSULE PO SCH ×3 (09:20→20:40)
[2021-06-21] MEDS: INSULIN REGULAR 100 UNIT/ML SUBCUT SCH ×4 (09:20→20:41)
[2021-06-21] MEDS: ENOXAPARIN 40 MG/0.4 ML SYRINGE SUBCUT SCH ×2 (09:20→20:41)
[2021-06-21] MEDS: ASPIRIN EC 81 MG TABLET PO SCH (09:20)
[2021-06-21] MEDS: OXYBUTYNIN XL 10 MG TABLET PO SCH (09:20)
[2021-06-21] MEDS: LOSARTAN 50 MG TABLET PO SCH (09:21)
[2021-06-21] MEDS: FAMOTIDINE 20 MG TABLET PO SCH ×2 (09:21→20:40)
[2021-06-21] MEDS: TAMSULOSIN 0.4 MG CAPSULE PO SCH (09:21)
[2021-06-21] MEDS: hydroCHLOROthiazide 12.5 MG CAPSULE PO SCH (09:21)
[2021-06-21] MEDS: methylPREDNISolone SOD SUC 40 MG/1 ML VIAL IV SCH ×2 (13:16→17:56)
[2021-06-21] MEDS: ATORVASTATIN 40 MG TABLET PO SCH (20:40)
[2021-06-22] MEDS: PROMETHAZINE 25 MG TABLET PO PRN
[2021-06-22] MEDS: LACTULOSE 20 GM/30 ML UDCUP PO PRN ×3 (00:17→11:18)
[2021-06-22] MEDS: ACETAMINOPHEN 325 MG TABLET PO PRN ×2 (00:18→11:19)
[2021-06-22] MEDS: methylPREDNISolone SOD SUC 40 MG/1 ML VIAL IV SCH ×3 (00:26→17:36)
[2021-06-22] MEDS: ALBUTEROL/IPRATROPIUM 3 ML NEB RESP TX SCH ×4 (01:34→20:22)
[2021-06-22] MEDS: LEVOTHYROXINE 150 MCG TABLET PO SCH (05:31)
[2021-06-22 06:04] LABS: Basophils % 0.2 % (0.0-0.8); Hematocrit 52.4 VOL% (42.0-52.0); Immature Granulocytes % 0.6 %; Lymphocytes # 0.2 10*3/uL (1.4-4.0); Mean Corpuscular HGB Conc 32.4 GM/DL (32-36); Mean Corpuscular Volume 91.1 FL (87-102); Mean Platelet Volume 12.8 FL (9.6-12.0); Monocytes % 2.5 % (1.7-12.7); Neutrophils % 95.7 % (38.7-73.9); Red Blood Count 5.75 MC/CUMM (3.8-5.5); Red Cell Distribution Width 15.1 % (9.3-17.3); White Blood Count 16.5 T/CUMM (4-12)
[2021-06-22 06:09] LABS: Platelet Count 73 T/CUMM (130-400)
[2021-06-22 06:28] LABS: Lymphocytes 1 % (20-55); Segmented Neutrophils 96 % (50-85); Total Cells Counted 100
[2021-06-22] MEDS: TAMSULOSIN 0.4 MG CAPSULE PO SCH (08:35)
[2021-06-22] MEDS: OXYBUTYNIN XL 10 MG TABLET PO SCH (08:35)
[2021-06-22] MEDS: BENZONATATE 100 MG CAPSULE PO SCH ×3 (08:35→21:07)
[2021-06-22] MEDS: ASPIRIN EC 81 MG TABLET PO SCH (08:35)
[2021-06-22] MEDS: ENOXAPARIN 40 MG/0.4 ML SYRINGE SUBCUT SCH ×2 (08:35→21:07)
[2021-06-22] MEDS: FAMOTIDINE 20 MG TABLET PO SCH ×2 (08:35→21:07)
[2021-06-22] MEDS: hydroCHLOROthiazide 12.5 MG CAPSULE PO SCH (08:35)
[2021-06-22] MEDS: INSULIN REGULAR 100 UNIT/ML SUBCUT SCH ×4 (08:36→21:08)
[2021-06-22] MEDS: FLUTICASONE 50 MCG NASAL SPRAY 16 GM BOTTLE BOTH NARES SCH (08:36)
[2021-06-22] MEDS ORDERED: LOSARTAN 50 MG TABLET PO SCH (09:00)
[2021-06-22] MEDS: LORazepam 2 MG/1 ML VIAL IV PRN (13:45)
[2021-06-22 14:01] LABS: Allen Test Positive; Pt O2 Delivery Device BIPAP
[2021-06-22 14:02] LABS: ABG Base Excess 3.5 MMOL/L (-2.5-2.5); ABG HCO3 27.3 MMOL/L (20-26); ABG Oxygen Saturation 92.9 % (95-100); ABG PCO2 41.2 MM HG (35-48); ABG PH 7.439 (7.35-7.45); ABG PO2 70.2 MM HG (80-95); ABG TCO2 22.8 MMOL/L (23-27)
[2021-06-22] MEDS ORDERED: FUROSEMIDE 20 MG/2 ML VIAL IV ONE (15:11)
[2021-06-22 18:51] LABS: Bilirubin,Urine Negative (Negative); Blood, Urine Negative (Negative); Glucose,Urine (UA) Negative (Negative); Hyaline Casts,Urine 7 /LPF (0-3); Ketones,Urine Negative (Negative); Mucus,Urine Occasional /LPF (Occasional); Nitrite,Urine Negative (Negative); Protein,Urine Negative; RBC,Urine 1 /HPF (0-4); Urine Appearance CLEAR (Clear); Urine Color Straw (Yellow); Urine Specific Gravity 1.009 (1.001-1.035); Urine Urobilinogen < 2.0 EU/DL (<2.0)
[2021-06-22] MEDS: ATORVASTATIN 40 MG TABLET PO SCH (21:07)
[2021-06-22] MEDS: ALBUTEROL INHALER 18 GM INH PRN (21:08)
[2021-06-23] MEDS: methylPREDNISolone SOD SUC 40 MG/1 ML VIAL IV SCH ×4 (00:05→23:50)
[2021-06-23] MEDS: ALBUTEROL/IPRATROPIUM 3 ML NEB RESP TX SCH ×4 (04:58→20:20)
[2021-06-23] MEDS: ALBUTEROL INHALER 18 GM INH PRN ×2 (05:30→20:01)
[2021-06-23] MEDS: LEVOTHYROXINE 150 MCG TABLET PO SCH (05:30)
[2021-06-23 05:49] LABS: Basophils % 0.1 % (0.0-0.8); Hematocrit 49.3 VOL% (42.0-52.0); Hemoglobin 16.4 GM/DL (14.0-18.0); Immature Granulocytes Absolute 0.16 #; Lymphocytes # 0.1 10*3/uL (1.4-4.0); Lymphocytes % 0.9 % (21.2-54.2); Mean Corpuscular HGB Conc 33.3 GM/DL (32-36); Mean Corpuscular Volume 89.2 FL (87-102); Mean Platelet Volume 10.4 FL (9.6-12.0); Monocytes % 2.7 % (1.7-12.7); Neutrophils % 95.3 % (38.7-73.9); Platelet Count 131 T/CUMM (130-400); Red Blood Count 5.53 MC/CUMM (3.8-5.5); Red Cell Distribution Width 14.8 % (9.3-17.3); White Blood Count 16.5 T/CUMM (4-12)
[2021-06-23 05:53] LABS: Calcium 8.7 MG/DL (8.5-10.1); Osmolality,Calculated 293.5 MOS/KG (273-304); Potassium 4.4 MMOL/L (3.5-5.1)
[2021-06-23 06:12] LABS: Platelet Estimate Adequate; Segmented Neutrophils 99 % (50-85); Total Cells Counted 100
[2021-06-23] MEDS: LORazepam 2 MG/1 ML VIAL IV PRN (08:39)
[2021-06-23] MEDS: INSULIN REGULAR 100 UNIT/ML SUBCUT SCH ×4 (09:30→20:00)
[2021-06-23] MEDS: hydroCHLOROthiazide 12.5 MG CAPSULE PO SCH (09:32)
[2021-06-23] MEDS: TAMSULOSIN 0.4 MG CAPSULE PO SCH (10:19)
[2021-06-23] MEDS: OXYBUTYNIN XL 10 MG TABLET PO SCH (10:19)
[2021-06-23] MEDS: ASPIRIN EC 81 MG TABLET PO SCH (10:19)
[2021-06-23] MEDS: BENZONATATE 100 MG CAPSULE PO SCH ×3 (10:20→20:01)
[2021-06-23] MEDS: FAMOTIDINE 20 MG TABLET PO SCH ×2 (10:20→20:01)
[2021-06-23] MEDS: ENOXAPARIN 40 MG/0.4 ML SYRINGE SUBCUT SCH ×2 (10:21→20:00)
[2021-06-23] MEDS: FLUTICASONE 50 MCG NASAL SPRAY 16 GM BOTTLE BOTH NARES SCH (10:22)
[2021-06-23] MEDS: ACETAMINOPHEN 325 MG TABLET PO PRN ×2 (10:37→20:15)
[2021-06-23] MEDS: MEROPENEM 500 MG in SODIUM CHLORIDE 0.9% 100 ML IV SCH ×2 (17:12→23:05)
[2021-06-23] MEDS: ONDANSETRON 4 MG/2 ML VIAL IV PRN (17:20)
[2021-06-23] MEDS: ATORVASTATIN 40 MG TABLET PO SCH (20:01)
[2021-06-23] MEDS: MELATONIN 3 MG TABLET PO PRN (20:15)
[2021-06-24] MEDS: ALBUTEROL/IPRATROPIUM 3 ML NEB RESP TX SCH ×4 (01:33→19:21)
[2021-06-24] MEDS: MEROPENEM 500 MG in SODIUM CHLORIDE 0.9% 100 ML IV SCH ×4 (05:04→23:26)
[2021-06-24 05:26] LABS: Basophils % 0.1 % (0.0-0.8); Hematocrit 52.5 VOL% (42.0-52.0); Hemoglobin 17.1 GM/DL (14.0-18.0); Immature Granulocytes Absolute 0.16 #; Lymphocytes # 0.2 10*3/uL (1.4-4.0); Lymphocytes % 0.9 % (21.2-54.2); Mean Corpuscular HGB Conc 32.6 GM/DL (32-36); Mean Corpuscular Volume 90.2 FL (87-102); Mean Platelet Volume 10.5 FL (9.6-12.0); Monocytes % 2.5 % (1.7-12.7); Neutrophils % 95.5 % (38.7-73.9); Platelet Count 110 T/CUMM (130-400); Red Blood Count 5.82 MC/CUMM (3.8-5.5); Red Cell Distribution Width 14.9 % (9.3-17.3); White Blood Count 16.6 T/CUMM (4-12)
[2021-06-24 05:46] LABS: Hypochromia 1+; Lymphocytes 1 % (20-55); Microcytosis 1+; Ovalocytes Slight; Segmented Neutrophils 95 % (50-85); Total Cells Counted 100
[2021-06-24 05:47] LABS: Platelet Estimate Adequate
[2021-06-24 05:58] LABS: Calcium 8.7 MG/DL (8.5-10.1); Osmolality,Calculated 290.7 MOS/KG (273-304); Potassium 4.6 MMOL/L (3.5-5.1)
[2021-06-24] MEDS: LEVOTHYROXINE 150 MCG TABLET PO SCH (06:05)
[2021-06-24] MEDS: ALBUTEROL INHALER 18 GM INH PRN (06:34)
[2021-06-24] MEDS: INSULIN REGULAR 100 UNIT/ML SUBCUT SCH ×4 (07:27→20:30)
[2021-06-24] MEDS: hydroCHLOROthiazide 12.5 MG CAPSULE PO SCH (09:33)
[2021-06-24] MEDS: methylPREDNISolone SOD SUC 40 MG/1 ML VIAL IV SCH ×3 (09:33→23:30)
[2021-06-24] MEDS: ENOXAPARIN 40 MG/0.4 ML SYRINGE SUBCUT SCH ×2 (09:33→20:29)
[2021-06-24] MEDS: FAMOTIDINE 20 MG TABLET PO SCH ×2 (09:33→20:29)
[2021-06-24] MEDS: TAMSULOSIN 0.4 MG CAPSULE PO SCH (09:34)
[2021-06-24] MEDS: BENZONATATE 100 MG CAPSULE PO SCH ×3 (09:34→20:29)
[2021-06-24] MEDS: ASPIRIN EC 81 MG TABLET PO SCH (09:34)
[2021-06-24] MEDS: OXYBUTYNIN XL 10 MG TABLET PO SCH (09:34)
[2021-06-24] MEDS: FLUTICASONE 50 MCG NASAL SPRAY 16 GM BOTTLE BOTH NARES SCH (09:35)
[2021-06-24 14:34] LABS: Allen Test Positive; Pt O2 Delivery Device BIPAP
[2021-06-24 14:36] LABS: ABG Base Excess 8.9 MMOL/L (-2.5-2.5); ABG HCO3 32.2 MMOL/L (20-26); ABG Oxygen Saturation 84.8 % (95-100); ABG PCO2 46.8 MM HG (35-48); ABG PH 7.473 (7.35-7.45); ABG PO2 49.3 MM HG (80-95); ABG TCO2 27.9 MMOL/L (23-27)
[2021-06-24] MEDS: ONDANSETRON 4 MG/2 ML VIAL IV PRN (14:50)
[2021-06-24] MEDS ORDERED: FUROSEMIDE 40 MG/4 ML VIAL IV ONE (16:26)
[2021-06-24] MEDS: MELATONIN 3 MG TABLET PO PRN (20:28)
[2021-06-24] MEDS: LORazepam 2 MG/1 ML VIAL IV PRN (20:30)
[2021-06-24] MEDS: ATORVASTATIN 40 MG TABLET PO SCH (21:11)
[2021-06-25] MEDS: ALBUTEROL/IPRATROPIUM 3 ML NEB RESP TX SCH ×4 (00:10→18:21)
[2021-06-25] MEDS: MEROPENEM 500 MG in SODIUM CHLORIDE 0.9% 100 ML IV SCH ×4 (04:04→23:17)
[2021-06-25 04:44] LABS: Basophils % 0.1 % (0.0-0.8); Hematocrit 50.7 VOL% (42.0-52.0); Hemoglobin 16.4 GM/DL (14.0-18.0); Immature Granulocytes % 1.2 %; Immature Granulocytes Absolute 0.24 #; Lymphocytes # 0.2 10*3/uL (1.4-4.0); Lymphocytes % 0.8 % (21.2-54.2); Mean Corpuscular HGB Conc 32.3 GM/DL (32-36); Mean Corpuscular Volume 91.4 FL (87-102); Mean Platelet Volume 10.7 FL (9.6-12.0); Monocytes % 2.8 % (1.7-12.7); Neutrophils % 95.1 % (38.7-73.9); Platelet Count 122 T/CUMM (130-400); Red Blood Count 5.55 MC/CUMM (3.8-5.5); Red Cell Distribution Width 14.8 % (9.3-17.3); White Blood Count 20.2 T/CUMM (4-12)
[2021-06-25 04:56] LABS: Osmolality,Calculated 288.8 MOS/KG (273-304); Potassium 4.3 MMOL/L (3.5-5.1)
[2021-06-25 05:29] LABS: Band Neutrophils 2 % (0-10); Lymphocytes 2 % (20-55); Ovalocytes Slight; Segmented Neutrophils 92 % (50-85); Total Cells Counted 100
[2021-06-25 05:30] LABS: Hypochromia Slight; Microcytosis 1+; Platelet Estimate Adequate
[2021-06-25] MEDS: LEVOTHYROXINE 150 MCG TABLET PO SCH (05:30)
[2021-06-25] MEDS: ONDANSETRON 4 MG/2 ML VIAL IV PRN ×3 (08:15→23:55)
[2021-06-25] MEDS: ASPIRIN EC 81 MG TABLET PO SCH (08:16)
[2021-06-25] MEDS: ENOXAPARIN 40 MG/0.4 ML SYRINGE SUBCUT SCH ×2 (08:16→21:02)
[2021-06-25] MEDS: BENZONATATE 100 MG CAPSULE PO SCH ×3 (08:16→20:59)
[2021-06-25] MEDS: OXYBUTYNIN XL 10 MG TABLET PO SCH (08:17)
[2021-06-25] MEDS: TAMSULOSIN 0.4 MG CAPSULE PO SCH (08:17)
[2021-06-25] MEDS: FAMOTIDINE 20 MG TABLET PO SCH ×2 (08:17→20:59)
[2021-06-25] MEDS: methylPREDNISolone SOD SUC 40 MG/1 ML VIAL IV SCH ×3 (08:17→23:36)
[2021-06-25] MEDS: hydroCHLOROthiazide 12.5 MG CAPSULE PO SCH (08:17)
[2021-06-25] MEDS: FLUTICASONE 50 MCG NASAL SPRAY 16 GM BOTTLE BOTH NARES SCH (10:58)
[2021-06-25] MEDS: INSULIN REGULAR 100 UNIT/ML SUBCUT SCH ×5 (12:28→20:59)
[2021-06-25] MEDS: LORazepam 2 MG/1 ML VIAL IV PRN ×2 (15:00→21:00)
[2021-06-25] MEDS: ATORVASTATIN 40 MG TABLET PO SCH (20:59)
[2021-06-25] MEDS: MELATONIN 3 MG TABLET PO PRN (20:59)
[2021-06-25] MEDS: CALCIUM CARBONATE CHEW 500 MG TABLET PO PRN (23:55)
[2021-06-26] MEDS: ALBUTEROL/IPRATROPIUM 3 ML NEB RESP TX SCH ×4 (02:31→19:11)
[2021-06-26] MEDS: ONDANSETRON 4 MG/2 ML VIAL IV PRN (04:30)
[2021-06-26] MEDS: MEROPENEM 500 MG in SODIUM CHLORIDE 0.9% 100 ML IV SCH ×4 (05:31→22:36)
[2021-06-26] MEDS: LEVOTHYROXINE 150 MCG TABLET PO SCH (05:32)
[2021-06-26 06:15] LABS: Basophils % 0.2 % (0.0-0.8); Hematocrit 51.6 VOL% (42.0-52.0); Hemoglobin 16.8 GM/DL (14.0-18.0); Immature Granulocytes % 1.2 %; Immature Granulocytes Absolute 0.24 #; Lymphocytes # 0.2 10*3/uL (1.4-4.0); Mean Corpuscular HGB Conc 32.6 GM/DL (32-36); Mean Platelet Volume 11.5 FL (9.6-12.0); Neutrophils % 95.6 % (38.7-73.9); Platelet Count 108 T/CUMM (130-400); Red Blood Count 5.67 MC/CUMM (3.8-5.5); White Blood Count 19.8 T/CUMM (4-12)
[2021-06-26 06:41] LABS: Calcium 9.6 MG/DL (8.5-10.1); Potassium 4.4 MMOL/L (3.5-5.1)
[2021-06-26 06:50] LABS: Band Neutrophils 1 % (0-10); Lymphocytes 1 % (20-55); Segmented Neutrophils 96 % (50-85); Total Cells Counted 100
[2021-06-26 06:51] LABS: Microcytosis 1+; Ovalocytes Slight; Platelet Estimate Decreased
[2021-06-26] MEDS ORDERED: DILTIAZEM 50 MG/10 ML VIAL IV ONE (07:27)
[2021-06-26] MEDS ORDERED: DILTIAZEM 25 MG/5 ML VIAL IV ONE (07:28)
[2021-06-26] MEDS: DILTIAZEM INJ 100 MG in SODIUM CHLORIDE 0.9% 100 ML IV SCH (07:44)
[2021-06-26] MEDS ORDERED: AMIODARONE INJ 150 MG in DEXTROSE 5% 100 ML IV ONE (08:29)
[2021-06-26] MEDS: methylPREDNISolone SOD SUC 40 MG/1 ML VIAL IV SCH ×3 (08:33→23:32)
[2021-06-26] MEDS: ENOXAPARIN 100 MG/ML SYRINGE SUBCUT SCH ×2 (08:33→20:14)
[2021-06-26] MEDS: hydroCHLOROthiazide 12.5 MG CAPSULE PO SCH (08:33)
[2021-06-26] MEDS: BENZONATATE 100 MG CAPSULE PO SCH ×3 (08:34→20:15)
[2021-06-26] MEDS: FAMOTIDINE 20 MG TABLET PO SCH ×2 (08:34→20:15)
[2021-06-26] MEDS: OXYBUTYNIN XL 10 MG TABLET PO SCH (08:34)
[2021-06-26] MEDS: ASPIRIN EC 81 MG TABLET PO SCH (08:34)
[2021-06-26] MEDS: TAMSULOSIN 0.4 MG CAPSULE PO SCH (08:34)
[2021-06-26] MEDS: INSULIN REGULAR 100 UNIT/ML SUBCUT SCH ×4 (08:34→20:14)
[2021-06-26] MEDS: FLUTICASONE 50 MCG NASAL SPRAY 16 GM BOTTLE BOTH NARES SCH (08:37)
[2021-06-26] MEDS ORDERED: AMIODARONE 150 MG/3 ML VIAL ONE (08:39)
[2021-06-26] MEDS ORDERED: AMIODARONE INJ 450 MG in DEXTROSE 5% 241 ML IV SCH (08:40)
[2021-06-26] MEDS: ASCORBIC ACID 500 MG TABLET PO SCH ×2 (10:13→20:17)
[2021-06-26] MEDS: LORazepam 2 MG/1 ML VIAL IV PRN ×3 (10:28→21:24)
[2021-06-26] MEDS ORDERED: METOPROLOL TARTRATE 25 MG TABLET PO ONE (12:40)
[2021-06-26] MEDS: METOPROLOL TARTRATE 5 MG/5 ML VIAL IV SCH ×3 (12:54→16:29)
[2021-06-26] MEDS: AMIODARONE INJ 450 MG in DEXTROSE 5% 241 ML IV SCH (15:24)
[2021-06-26] MEDS ORDERED: METOPROLOL TARTRATE 5 MG/5 ML VIAL IV ONE (16:22)
[2021-06-26] MEDS: ATORVASTATIN 40 MG TABLET PO SCH (20:15)
[2021-06-26] MEDS: METOPROLOL TARTRATE 25 MG TABLET PO SCH (20:17)
[2021-06-27] MEDS: ALBUTEROL/IPRATROPIUM 3 ML NEB RESP TX SCH ×4 (00:46→19:58)
[2021-06-27] MEDS: MEROPENEM 500 MG in SODIUM CHLORIDE 0.9% 100 ML IV SCH ×4 (04:28→23:39)
[2021-06-27] MEDS: AMIODARONE INJ 450 MG in DEXTROSE 5% 241 ML IV SCH (05:40)
[2021-06-27] MEDS: LEVOTHYROXINE 150 MCG TABLET PO SCH (05:40)
[2021-06-27] MEDS: INSULIN REGULAR 100 UNIT/ML SUBCUT SCH ×4 (07:48→21:04)
[2021-06-27] MEDS: TAMSULOSIN 0.4 MG CAPSULE PO SCH (09:08)
[2021-06-27] MEDS: ASPIRIN EC 81 MG TABLET PO SCH (09:08)
[2021-06-27] MEDS: BENZONATATE 100 MG CAPSULE PO SCH ×4 (09:08→21:28)
[2021-06-27] MEDS: hydroCHLOROthiazide 12.5 MG CAPSULE PO SCH (09:08)
[2021-06-27] MEDS: ENOXAPARIN 100 MG/ML SYRINGE SUBCUT SCH ×2 (09:09→21:08)
[2021-06-27] MEDS: METOPROLOL TARTRATE 25 MG TABLET PO SCH ×3 (09:09→21:09)
[2021-06-27] MEDS: OXYBUTYNIN XL 10 MG TABLET PO SCH (09:11)
[2021-06-27] MEDS: AMIODARONE 200 MG TABLET PO SCH ×2 (09:11→21:09)
[2021-06-27] MEDS: methylPREDNISolone SOD SUC 40 MG/1 ML VIAL IV SCH ×3 (09:11→23:44)
[2021-06-27] MEDS: FLUTICASONE 50 MCG NASAL SPRAY 16 GM BOTTLE BOTH NARES SCH (09:11)
[2021-06-27] MEDS: FAMOTIDINE 20 MG TABLET PO SCH ×3 (09:12→21:29)
[2021-06-27] MEDS: ASCORBIC ACID 500 MG TABLET PO SCH ×3 (09:12→21:29)
[2021-06-27] MEDS: DILTIAZEM INJ 100 MG in SODIUM CHLORIDE 0.9% 100 ML IV SCH (13:12)
[2021-06-27] MEDS ORDERED: ALPRAZolam 0.5 MG TABLET PO ONE (15:07)
[2021-06-27] MEDS: ALPRAZolam 0.5 MG TABLET PO PRN (21:09)
[2021-06-27] MEDS: ATORVASTATIN 40 MG TABLET PO SCH (21:09)
[2021-06-27] MEDS: ALBUTEROL INHALER 18 GM INH PRN (21:11)
[2021-06-28] MEDS: ALBUTEROL/IPRATROPIUM 3 ML NEB RESP TX SCH ×4 (00:20→19:15)
[2021-06-28] MEDS: MEROPENEM 500 MG in SODIUM CHLORIDE 0.9% 100 ML IV SCH ×4 (04:58→22:22)
[2021-06-28] MEDS: ENOXAPARIN 100 MG/ML SYRINGE SUBCUT SCH ×2 (08:47→20:06)
[2021-06-28] MEDS: LEVOTHYROXINE 150 MCG TABLET PO SCH (08:47)
[2021-06-28] MEDS: ASCORBIC ACID 500 MG TABLET PO SCH ×2 (08:48→20:07)
[2021-06-28] MEDS: METOPROLOL TARTRATE 25 MG TABLET PO SCH ×4 (08:48→21:46)
[2021-06-28] MEDS: OXYBUTYNIN XL 10 MG TABLET PO SCH (08:48)
[2021-06-28] MEDS: BENZONATATE 100 MG CAPSULE PO SCH ×3 (08:48→20:07)
[2021-06-28] MEDS: ASPIRIN EC 81 MG TABLET PO SCH (08:48)
[2021-06-28] MEDS: TAMSULOSIN 0.4 MG CAPSULE PO SCH (08:48)
[2021-06-28] MEDS: FLUTICASONE 50 MCG NASAL SPRAY 16 GM BOTTLE BOTH NARES SCH (08:49)
[2021-06-28] MEDS: hydroCHLOROthiazide 12.5 MG CAPSULE PO SCH (08:49)
[2021-06-28] MEDS: FAMOTIDINE 20 MG TABLET PO SCH ×2 (08:49→20:07)
[2021-06-28] MEDS: AMIODARONE 200 MG TABLET PO SCH ×2 (08:50→20:06)
[2021-06-28] MEDS: methylPREDNISolone SOD SUC 40 MG/1 ML VIAL IV SCH ×3 (08:52→23:48)
[2021-06-28 09:36] LABS: Basophils % 0.1 % (0.0-0.8); Hemoglobin 15.7 GM/DL (14.0-18.0); Immature Granulocytes % 1.2 %; Immature Granulocytes Absolute 0.31 #; Lymphocytes # 0.3 10*3/uL (1.4-4.0); Lymphocytes % 1.1 % (21.2-54.2); Mean Corpuscular HGB Conc 33.4 GM/DL (32-36); Mean Corpuscular Volume 89.5 FL (87-102); Mean Platelet Volume 12.2 FL (9.6-12.0); Monocytes % 1.6 % (1.7-12.7); Red Blood Count 5.25 MC/CUMM (3.8-5.5); Red Cell Distribution Width 14.9 % (9.3-17.3); White Blood Count 25.6 T/CUMM (4-12)
[2021-06-28 09:40] LABS: Platelet Count 89 T/CUMM (130-400)
[2021-06-28 09:56] LABS: Anisocytosis Slight; Platelet Estimate Decreased; Segmented Neutrophils 97 % (50-85); Total Cells Counted 100
[2021-06-28 10:10] LABS: Calcium 8.4 MG/DL (8.5-10.1); Osmolality,Calculated 297.7 MOS/KG (273-304); Potassium 4.5 MMOL/L (3.5-5.1)
[2021-06-28] MEDS: INSULIN REGULAR 100 UNIT/ML SUBCUT SCH ×4 (10:27→20:21)
[2021-06-28] MEDS: ALPRAZolam 0.5 MG TABLET PO PRN ×3 (10:45→20:06)
[2021-06-28] MEDS: LACTULOSE 20 GM/30 ML UDCUP PO PRN (11:00)
[2021-06-28] MEDS: CALCIUM CARBONATE CHEW 500 MG TABLET PO PRN (11:22)
[2021-06-28 12:18] LABS: Bilirubin,Urine Negative (Negative); Blood, Urine Large mg/dL (Negative); Glucose,Urine (UA) 50 mg/dL (Negative); Ketones,Urine 5 mg/dL (Negative); Mucus,Urine Many /LPF (Occasional); Nitrite,Urine Negative (Negative); Protein,Urine 30 MG/DL; RBC,Urine 1432 /HPF (0-4); Urine Appearance Slightly Hazy (Clear); Urine Color Amber (Yellow)
[2021-06-28] MEDS ORDERED: SIMETHICONE CHEW 80 MG TABLET PO PRN (15:56)
[2021-06-28] MEDS: MELATONIN 3 MG TABLET PO PRN (20:07)
[2021-06-28] MEDS: ATORVASTATIN 40 MG TABLET PO SCH (20:07)
[2021-06-28] MEDS ORDERED: ALPRAZolam 0.5 MG TABLET PO ONE (22:28)
[2021-06-29] MEDS: ALBUTEROL/IPRATROPIUM 3 ML NEB RESP TX SCH ×3 (00:45→16:29)
[2021-06-29] MEDS: LORazepam 2 MG/1 ML VIAL IV PRN (01:55)
[2021-06-29] MEDS: DEXMEDETOMIDINE 200 MCG in SODIUM CHLORIDE 0.9% 48 ML IV PRN ×2 (05:26→11:24)
[2021-06-29] MEDS: MEROPENEM 500 MG in SODIUM CHLORIDE 0.9% 100 ML IV SCH ×2 (05:37→12:57)
[2021-06-29] MEDS ORDERED: MEPERIDINE 25 MG/1 ML VIAL IV PRN (06:27)
[2021-06-29] MEDS: MEPERIDINE 25 MG/1 ML VIAL IV PRN ×5 (09:44→14:47)
[2021-06-29] MEDS ORDERED: LORazepam 2 MG/1 ML VIAL IV ONE (10:07)
[2021-06-29] MEDS ORDERED: MEPERIDINE 25 MG/1 ML VIAL IV ONE (10:07)
[2021-06-29] MEDS: INSULIN REGULAR 100 UNIT/ML SUBCUT SCH ×2 (10:09→12:57)
[2021-06-29] MEDS: ENOXAPARIN 100 MG/ML SYRINGE SUBCUT SCH (10:10)
[2021-06-29] MEDS: methylPREDNISolone SOD SUC 40 MG/1 ML VIAL IV SCH (10:17)
== END 2021-06-29 15:08 | disposition expired | DRG 189 ==
LOC: N.ED 11:44 → SUATTDRO 15:18 → N.EDINP 15:18 → N.3E 17:49 → N.CC 06-10 06:18
PROVIDERS: ADMIT Phlebology; ATTEND Internal Medicine